=== PATIENT | male | born 1960 | race Caucasian/White ===

== ENCOUNTER → 2017-08-07 | Day surgery (SDC) | payer OTHER ==
[~2017-08-07] MED LIST: ALLOPURINOL100 MG PO; BYSTOLIC10 MG PO; CALCIUM PO; DEXILANT60 MG PO; DIOVAN HCT 3201 EACH PO; DIOVAN160 MG PO; DIOVAN320 MG PO; FENTANYL CITRATE/PF 100MCG/2 ML INJ ONE; LIDOCAINE HCL 2% LOCAL INJ 5 ML SDV VIAL INJ ONE; LISINOPRIL10 MG PO; METOCLOPRAMIDE HCL 10 MG/2ML VIAL ONE; MIDAZOLAM HCL 2 MG/2 ML VIAL ONE; MULTIVITAMINS1 EAC7 PO; PROPOFOL IV EMULSION 10 MG/ML 50 ML VIAL ONE; VITAMIN D32000 UNI1 PO
--- NOTE | 2017-08-08 08:07 | Operative Report ---
DATE OF PROCEDURE: August 07, 2017 REFERRING PHYSICIAN: Dr. Zeus Camargo. PROCEDURE PERFORMED: Esophagogastroduodenoscopy with biopsies. INDICATIONS FOR ESOPHAGOGASTRODUODENOSCOPY: History of Hawthorne's esophagus with low-grade dysplasia. MEDICATION: Patient was done under MAC. Please see anesthesiologist's note. PROCEDURE: With the patient in the left lateral decubitus position, the flexible fiberoptic Olympus gastroscope was introduced into the esophagus under direct visualization without any difficulty. Tongues of Hawthorne's epithelium were noted to extend proximally from the GE junction with the longest extending approximately 3 cm. The scope was then advanced with ease into the stomach, and patient is status post Mann-en-Y. The anastomosis appeared to be intact. The enteric loop was patent. The scope was then withdrawn back to the GE junction. Four-quadrant biopsies were obtained at 40 cm and at 38 cm and at 37 cm. The scope was subsequently withdrawn. Patient tolerated the procedure well. IMPRESSION: 1. Tongues of Hawthorne's esophagus with the longest extending approximately 3 cm from the gastroesophageal junction. Four-quadrant biopsies obtained every 2 cm. 1. Status post Mann-en-Y. 2. Anastomosis intact. PLAN: Follow up histology. Continue current therapy. Job#: [id number] EV cc:ZEUS CAMARGO DO
== END | disposition home or self-care (01) ==
LOC: OR 13:27
PROVIDERS: ATTEND Internal Medicine Gastroenterology
DX: K22.710 Barrett's esophagus with low grade dysplasia (principal); K63.5 Polyp of colon; Z98.84 Bariatric surgery status; K21.9 Gastro-esophageal reflux disease without esophagitis; K57.90 Diverticulosis of intestine, part unspecified, without perforation or abscess without bleeding; K64.8 Other hemorrhoids; I10 Essential (primary) hypertension; M10.9 Gout, unspecified; Z68.34 Body mass index [BMI] 34.0-34.9, adult; Z80.0 Family history of malignant neoplasm of digestive organs
CPT/HCPCS: 43239; J2001; J2250; J2765